=== PATIENT | male | born 1960 | race Caucasian/White ===

== ENCOUNTER → 2021-08-10 | Outpatient (CLI) | payer BC ==
--- NOTE | 2021-08-11 10:02 | REP ---
INDICATION: ABNORMAL FINDING OF LUNG FIELD. COMPARISON: 07/16/2020. TECHNIQUE: CT chest performed without the use of intravenous contrast. Sagittal and coronal reconstruction images are performed. FINDINGS: Lungs: Scattered diffuse mild interstitial fibrotic scarring is noted along with bronchiectasis. There is a 5 mm nodule again seen in the superior segment of the right lower lobe, unchanged. No other pulmonary nodules are seen. Mediastinum: No gross adenopathy. Shirin: No gross adenopathy. Axilla: No gross adenopathy. Pleura: No effusion. Heart: Not enlarged. Thoracic aorta: No aneurysm. Upper abdominal structures: Several cysts are seen in the left lobe of the liver, the largest measures 2.7 cm in diameter. Visualized osseous structures: There are degenerative changes of the spine without compression deformity. IMPRESSION: Stable 5 mm nodule right lower lobe. No other pulmonary nodule identified. No adenopathy. Recommend follow-up CT in 1 year, as per Fleischner society criteria. <Electronically signed by Garfield Grajeda > 08/11/21 [id number]
== END ==
LOC: M RAD 15:54
PROVIDERS: ATTEND Nurse Practitioner Adult Health
DX: R91.8 Other nonspecific abnormal finding of lung field (principal)

== ENCOUNTER → 2022-08-11 | Outpatient (CLI) | payer BC | LOC: M RAD 14:08 | PROVIDERS: ATTEND Nurse Practitioner Adult Health | DX: R91.8 Other nonspecific abnormal finding of lung field (principal) ==